=== PATIENT | female | born 1970 | race Caucasian/White ===

== ENCOUNTER 2016-09-28 08:53 | Emergency (ER) | payer BC, OTHER ==
[~2016-09-28] VITALS: Ht 162.6 cm; Wt 90.9 kg
[2016-09-28] MEDS ORDERED: KETOROLAC 30 MG/ML VIAL (J1885) IV ONE ×2 (09:30→11:15)
[2016-09-28 09:56] LABS: BASO % 0.4 % (0.0-1.0); EOS # 0.2 K/mm3 (0.0-0.50); LARGE UNSTAINED CELL # 0.1 K/mm3 (0.0-0.4); LARGE UNSTAINED CELL % 1.7 % (0.0-4.0); LYMPH # 2.3 K/mm3 (1.5-4.5); LYMPH % 30.8 % (24.0-44.0); MEAN CORPUSCULAR HEMOGLOBIN 31.1 pg (27.0-33.0); MEAN CORPUSCULAR HGB CONC 33.4 g/dl (32.0-36.5); MEAN CORPUSCULAR VOLUME 92.9 fl (80.0-96.0); MONO # 0.3 K/mm3 (0.0-0.8); MONO % 4.2 % (0.0-5.0); NEUTROPHILS # 4.4 K/mm3 (1.8-7.7); NEUTROPHILS % 59.9 % (36.0-66.0); PLATELET COUNT, AUTOMATED 262 k/mm3 (150-450); RED CELL DISTRIBUTION WIDTH 12.9 % (11.5-14.5); WHITE BLOOD COUNT 7.4 K/mm3 (4.0-10.0)
[2016-09-28 10:07] LABS: ANION GAP 4 MEQ/L (8-16); BLOOD UREA NITROGEN 14 MG/DL (7-18); CALCIUM LEVEL 9.3 MG/DL (8.5-10.1); CARBON DIOXIDE LEVEL 30 MEQ/L (21-32); CHLORIDE LEVEL 106 MEQ/L (98-107); CREATININE FOR GFR 0.71 MG/DL (0.55-1.02); GLOMERULAR FILTRATION RATE > 60.0 (>58); GLUCOSE, FASTING 88 MG/DL (70-105); POTASSIUM SERUM 4.1 MEQ/L (3.5-5.1); SODIUM LEVEL 140 MEQ/L (136-145)
--- NOTE | 2016-09-28 10:58 | REP ---
MRI STUDY OF THE BRAIN WITHOUT CONTRAST: HISTORY: Left hand numbness, shooting shoulder pain. TECHNIQUE: Axial and sagittal imaging planes are utilized for T1 and T2-weighted scans. Sequences include spin echo, fast spin echo, FLAIR, and diffusion weighted sequences. MRI FINDINGS: No bony calvarial lesion is seen. There is no MR evidence of significant paranasal sinus disease. No intraorbital abnormality is appreciated. Craniocervical junction and upper cervical cord are normal in appearance. Lateral, third, and fourth ventricles are normal in size and position. There is no evidence of intracranial hemorrhage. Diffusion weighted scans show no evidence of acute ischemia. No extra-axial fluid collection, mass, or midline shift is seen. T2-weighted scans demonstrate scattered bilateral subcortical, and to some degree, periventricular white matter T2 hyperintensities. These are nonspecific. They may reflect areas of demyelination. Alternatively, small vessel ischemic changes and migraine associated foci of gliosis are possibilities as well. No area of T1 hypointensity is seen. Study is otherwise unremarkable. IMPRESSION: Multiple foci of subcortical white matter T2 hyperintensities seen bilaterally in the frontal and parietal lobes. This may reflect demyelinating disease or conceivably a small vessel microvascular changes. They may alternatively be associated with migraine. Signed by Nicholas Sheets MD 09/28/2016 03:23 P
[2016-09-28] MEDS ORDERED: diphenhydrAMINE INJ 50MG/ML VIAL (J1200) IV STA (11:04)
[2016-09-28] MEDS ORDERED: METOCLOPRAMIDE INJ 10MG/2ML VIAL (J2765) IV ONE (11:15)
--- NOTE | 2016-09-28 11:18 | REP ---
REASON FOR EXAM: Loss of sensation in the left hand. Comparison cervical spine MRI: None. The craniovertebral junction is within normal limits. There is no cerebellar tonsillar ectopia. There is no abnormal signal seen in the imaged portion of the spinal cord. Vertebral body height and alignment is normal. Disc space height and hydrational signal is within normal limits. The marrow signal is within normal limits. At the C2-3 level, there is no abnormality. There is no disc herniation, foraminal narrowing, or central canal stenosis. At the C3-4 level, there is a slight broad based annular bulge which effaces the ventral subarachnoid space but is causing no cord compression. There is no disc extrusion or foraminal narrowing. At the C4-5 level, there is a mild broad based annular bulge which slightly encroaches upon the ventral subarachnoid space but causes no cord compression. There is no disc extrusion or foraminal narrowing. At the C5-6 level, there is a slight broad based annular bulge which effaces the central subarachnoid space but causes no cord compression. There is no foraminal narrowing or disc extrusion. At the C6-7 level, there is a slight broad based annular bulge seen in conjunction with a tiny focal central subligamentous disc protrusion. There is mild encroachment upon the ventral subarachnoid space but there is no cord compression or taylor central canal stenosis. There is no foraminal narrowing or disc extrusion. At the C7-T1 level, there is no abnormality. There is no disc herniation, foraminal narrowing, or central canal stenosis. IMPRESSION: Mild discogenic changes as described above. Signed by Fernando Cui DO 09/28/2016 11:21 A
[2016-09-28] MEDS ORDERED: ASPI1TAB PO (12:18)
[2016-09-28 12:28] VITALS: BP 108/58
--- NOTE | 2016-09-30 07:12 | ECGEPIP ---
Stationary ECG Study [facility] - ED Test Date: 2016-09-28 Pat Name: ANGELES TUCKERN Department: Room: - Gender: F [employer]: rn : 1970 Requested By: Philly Carmona Order Number: [id number] Reading MD: Philly Carmona Measurements Intervals Ramona Rate: 81 P: 47 MN: 142 QRS: 58 QRSD: 98 T: 31 QT: 345 QTc: 401 Interpretive Statements SINUS RHYTHM LOW QRS VOLTAGE IN PRECORDIAL LEADS NSTTW ABNORMALITY SIMILAR 07/11/11 Electronically Signed On 09-30-2016 7:12:04 EDT by Philly Carmona
== END 2016-09-28 12:30 | disposition home or self-care (01) ==
LOC: M ED 10:59
DX: R20.2 Paresthesia of skin (principal); R20.0 Anesthesia of skin; R51 Headache
CPT/HCPCS: 36415; 70551; 72141; 80048; 85025; 93005; 96374; 96375; 99284; J1885; J2765

== ENCOUNTER → 2017-09-27 | Outpatient (CLI) | payer OTHER ==
[~2017-09-27] MED LIST: ISOVUE-370 76% 100ML VIAL (Q9967) As Ordered
== END ==
LOC: M RAD 08:37
DX: R22.1 Localized swelling, mass and lump, neck (principal)
CPT/HCPCS: Q9967

== ENCOUNTER 2019-09-01 07:38 | Emergency (ER) | payer OTHER ==
[~2019-09-01] VITALS: Ht 162.6 cm; Wt 77.3 kg
[~2019-09-01 07:38] MED LIST changes: +ASPI81TA26 PO; -ISOVUE-370 76% 100ML VIAL (Q9967) As Ordered
[2019-09-01] MEDS ORDERED: MONT10TA4 (07:49)
[2019-09-01] MEDS ORDERED: BOOSTRIX/ADACEL VACCINE (DIPHTH/PERTUSS/ACELL/TETANUS) 0.5ML SYR IM ONE (08:15)
[2019-09-01] MEDS ORDERED: LIDOCAINE 1% MDV 20ML VIAL INFIL ONE (08:30)
[2019-09-01 09:29] VITALS: BP 137/62
--- NOTE | 2019-09-01 09:34 | REP ---
RIGHT ANKLE, TWO VIEWS: There is no evidence of an acute fracture, dislocation, or intrinsic bone disease. No radiopaque foreign body is seen. IMPRESSION: No fracture or dislocation. No radiopaque foreign body is seen. Electronically Signed by Brennan Li MD 09/01/2019 10:24 A
== END 2019-09-01 09:31 | disposition home or self-care (01) ==
LOC: M ED 07:38
DX: S91.011A Laceration without foreign body, right ankle, initial encounter (principal); W22.8XXA Striking against or struck by other objects, initial encounter; Y92.018 Other place in single-family (private) house as the place of occurrence of the external cause; F17.210 Nicotine dependence, cigarettes, uncomplicated

== ENCOUNTER → 2023-06-16 | Outpatient (CLI) | payer OTHER ==
[~2023-06-16] MED LIST changes: +MONT10TA97
== END ==
LOC: M RAD 14:18
PROVIDERS: ATTEND Internal Medicine
DX: R91.1 Solitary pulmonary nodule (principal); R06.02 Shortness of breath; R05.3 Chronic cough

== ENCOUNTER 2024-10-02 18:07 | Emergency (ER) | payer OTHER ==
[~2024-10-02] VITALS: Ht 162.6 cm; Wt 99.7 kg
[2024-10-02] MEDS ORDERED: WELLTAB38 PO (18:35)
[2024-10-02 19:05] LABS: BASO # 0.1 10^3/uL (0.0-0.2); BASO % 0.7 % (0.0-1.0); EOS # 0.3 10^3/uL (0.0-0.5); EOS % 3.9 % (0.0-3.0); LYMPH # 3.4 10^3/uL (1.5-5.0); LYMPH % 41.4 % (24.0-44.0); MONO # 0.5 10^3/uL (0.0-0.8); MONO % 5.5 % (2.0-8.0); NEUTROPHILS # 3.9 10^3/uL (1.5-8.5); NEUTROPHILS % 48.3 % (36.0-66.0); PLATELET COUNT, AUTOMATED 305 10^3/uL (150-450)
[2024-10-02 19:15] LABS: CK-MB VALUE MASS < 1.0 NG/ML (<3.6)
[2024-10-02 19:16] LABS: CALCIUM LEVEL 8.7 MG/DL (8.5-10.1); CARBON DIOXIDE LEVEL 29 MMOL/L (20-31); CHLORIDE LEVEL 102 MMOL/L (98-107); CPK CREATINE PHOSPHOKINASE 48 U/L (34-145); CREATININE FOR GFR 0.78 MG/DL (0.55-1.30); GLOMERULAR FILTRATION RATE > 90.0 (>51); POTASSIUM SERUM 4.0 MMOL/L (3.5-5.1); SODIUM LEVEL 142 MMOL/L (136-145)
[2024-10-02] MEDS ORDERED: ISOVUE-370 76% 100 ML VIAL As Ordered ONE (20:20)
[2024-10-02 20:34] LABS: MAGNESIUM LEVEL 2.0 MG/DL (1.8-2.4)
[2024-10-02 20:40] LABS: CK-MB VALUE MASS < 1.0 NG/ML (<3.6); CPK CREATINE PHOSPHOKINASE 46 U/L (34-145)
[2024-10-02 21:40] VITALS: BP 149/89; TEMP 98.4; O2SAT 98
== END 2024-10-02 21:41 | disposition home or self-care (01) ==
LOC: M ED 18:07
DX: R07.89 Other chest pain (principal); F41.9 Anxiety disorder, unspecified; F32.A Depression, unspecified; F10.10 Alcohol abuse, uncomplicated; Z79.899 Other long term (current) drug therapy
CPT/HCPCS: 36415; 71045; 71275; 80048; 82550; 82553; 83735; 83880; 84484; 85025; 93005; 93041; 94760; 99285; Q9967

== ENCOUNTER → 2024-10-08 | Outpatient (REF) | payer OTHER ==
[~2024-10-08] MED LIST changes: +WELLTAB38 PO
[2024-10-09 09:08] LABS: BASO # 0.1 10^3/uL (0.0-0.2); BASO % 0.7 % (0.0-1.0); EOS # 0.2 10^3/uL (0.0-0.5); EOS % 2.3 % (0.0-3.0); LYMPH # 2.8 10^3/uL (1.5-5.0); LYMPH % 32.7 % (24.0-44.0); MONO # 0.4 10^3/uL (0.0-0.8); MONO % 5.1 % (2.0-8.0); NEUTROPHILS # 5.0 10^3/uL (1.5-8.5); NEUTROPHILS % 59.0 % (36.0-66.0); PLATELET COUNT, AUTOMATED 295 10^3/uL (150-450)
[2024-10-09 09:40] LABS: C REACTIVE PROTEIN QUANTITATIV 0.85 MG/DL (<1.0); RHEUMATOID FACTOR QUANT 13.7 IU/ML (<14)
[2024-10-09 09:43] LABS: THYROID PEROXIDASE ANTIBODY < 28.0 U/ML (<60.0)
[2024-10-14 16:12] LABS: LYME TOTAL ANTIBODY CIA <= 0.90 Index (<=0.90)
== END ==
LOC: M LAB REF 09:04
PROVIDERS: ATTEND Internal Medicine
DX: M13.0 Polyarthritis, unspecified (principal); R53.83 Other fatigue

== ENCOUNTER 2024-11-10 07:33 | Emergency (ER) | payer OTHER ==
[~2024-11-10] VITALS: Ht 163.2 cm; Wt 102.0 kg
[2024-11-10] MEDS ORDERED: PANT40TA29 (07:47)
[2024-11-10] MEDS ORDERED: [UNRECOGNIZED DRUG - CODE] PO (07:47)
[2024-11-10 10:11] VITALS: BP 155/83; TEMP 97.9; O2SAT 98
== END 2024-11-10 10:12 | disposition home or self-care (01) ==
LOC: M ED 07:33
DX: S93.402A Sprain of unspecified ligament of left ankle, initial encounter (principal); Y92.9 Unspecified place or not applicable; Y93.9 Activity, unspecified; Y99.9 Unspecified external cause status; W01.0XXA Fall on same level from slipping, tripping and stumbling without subsequent striking against object, initial encounter; Z79.1 Long term (current) use of non-steroidal anti-inflammatories (NSAID); Z79.899 Other long term (current) drug therapy